=== PATIENT | female | born 1990 | race African-American/Black ===

== ENCOUNTER 2016-08-26 20:38 | Emergency (ER) | payer MEDICAID ==
[~2016-08-26] VITALS: Ht 160 cm; Wt 86.0 kg
[2016-08-26 23:20] VITALS: BP 128/76
[2016-08-27 00:03] LABS: BASOPHILS % 0.6 % (0.0-2.0); CHLORIDE 108 mEq/L (98-107); INDEX HEMOLYSI 1 (1-3); INDEX ICTERIC 1 (1-4); INDEX LIPEMIC 1 (1-3); LYMPHOCYTES % 61.9 % (20.0-50.0); MEAN CORPUSCULAR HEMOGLOBIN 27.9 pg (28.0-32.0); MEAN CORPUSCULAR HGB CONC 32.4 g/dL (31.0-37.0); MEAN CORPUSCULAR VOLUME 86.1 fL (81.0-99.0); MEAN PLATELET VOLUME 7.5 fl (7.4-10.4); MONOCYTES % 8.4 % (2.0-8.0); NEUTROPHILS % 26.1 % (40.0-76.0); PLATELET 269 x1000/uL (130-400); RED CELL DISTRIBUTION WIDTH 16.1 % (11.6-14.6); WHITE BLOOD COUNT 9.9 x1000/uL (4.5-11.0)
[2016-08-27 00:09] LABS: ANION GAP 10; CALCIUM 8.9 mg/dL (8.5-10.1); CARBON DIOXIDE 27 mEq/L (21-32); UREA NITROGEN BLOOD 14 mg/dL (7-21); eGFR > 60 mL/min (>60)
== END 2016-08-27 02:26 | disposition home or self-care (01) ==
LOC: ER 20:38
DX: R53.1 Weakness (principal); J45.909 Unspecified asthma, uncomplicated
CPT/HCPCS: 36415; 80048; 85025; 99284

== ENCOUNTER 2016-09-14 16:09 | Emergency (ER) | payer MEDICAID ==
[~2016-09-14] VITALS: Ht 162.6 cm; Wt 87.0 kg
[2016-09-14] MEDS ORDERED: IPRATROPIUM BROMIDE (0.02%) 0.5MG/2.5ML NEB HHN STA (16:19)
[2016-09-14] MEDS ORDERED: PREDNISONE 20MG TABLET PO STA (16:19)
[2016-09-14] MEDS ORDERED: ALBUTEROL (0.083%) 2.5MG/3ML NEB HHN STA (16:19)
[2016-09-14] MEDS ORDERED: ALBUTEROL (0.5%) 2.5MG/0.5ML NEB HHN ONE (16:33)
[2016-09-14 16:53] VITALS: BP 128/92
== END 2016-09-14 17:33 | disposition home or self-care (01) ==
LOC: ER 16:10
DX: J45.901 Unspecified asthma with (acute) exacerbation (principal); R03.0 Elevated blood-pressure reading, without diagnosis of hypertension
CPT/HCPCS: 94640; 99283; J7512; J7611

== ENCOUNTER 2018-07-30 10:44 | Emergency (ER) | payer MEDICAID ==
[~2018-07-30] VITALS: Ht 160 cm; Wt 119.0 kg
[2018-07-30] MEDS ORDERED: ALBUTEROL (0.083%) 2.5MG/3ML NEB HHN ONE (11:45)
[2018-07-30 13:27] VITALS: BP 133/71
== END 2018-07-30 13:30 | disposition home or self-care (01) ==
LOC: ER 10:44
DX: R05 Cough (principal); J45.909 Unspecified asthma, uncomplicated
CPT/HCPCS: 71045; 81025; 93005; 94640; 99283; J7611

== ENCOUNTER 2018-10-28 06:14 | Emergency (ER) | payer MEDICAID ==
[~2018-10-28] VITALS: Ht 160 cm; Wt 93.0 kg
[2018-10-28] MEDS ORDERED: ALBUTEROL (0.083%) 2.5MG/3ML NEB HHN STA (06:51)
[2018-10-28] MEDS ORDERED: METHYLPREDNISOLONE SOD SUCC 125 MG/2 ML VIAL IV STA (06:51)
[2018-10-28] MEDS ORDERED: IPRATROPIUM BROMIDE (0.02%) 0.5MG/2.5ML NEB HHN STA (06:51)
[2018-10-28] MEDS ORDERED: SODIUM CHLORIDE 0.9% 1,000 ML IV ONE (06:51)
[2018-10-28] MEDS ORDERED: MAGNESIUM 2 G PREMIX 50 ML IV STA (06:51)
[2018-10-28 07:17] LABS: BASOPHILS % 0.5 % (0.0-2.0); HEMATOCRIT. 34.4 % (36.0-48.0); HEMOGLOBIN. 11.3 g/dL (12.0-16.0); LYMPHOCYTES % 58.7 % (20.0-50.0); MEAN CORPUSCULAR HEMOGLOBIN 26.7 pg (28.0-32.0); MEAN CORPUSCULAR VOLUME 81.6 fL (81.0-99.0); MEAN PLATELET VOLUME 7.5 fl (7.4-10.4); MONOCYTES % 7.5 % (2.0-8.0); NEUTROPHILS % 31.3 % (40.0-76.0); PLATELET 301 x1000/uL (130-400); RED BLOOD CELL COUNT 4.22 mill/uL (4.2-5.4); RED CELL DISTRIBUTION WIDTH 16.4 % (11.6-14.6)
[2018-10-28 07:22] VITALS: BP 125/70
[2018-10-28 07:24] LABS: CHLORIDE 110 mEq/L (98-107)
[2018-10-28 07:46] LABS: HCG SCREEN NEGATIVE
[2018-10-28] MEDS ORDERED: PREDNISONE 20MG TABLET PO ONE (09:30)
== END 2018-10-28 11:00 | disposition home or self-care (01) ==
LOC: ER 06:56
DX: J45.901 Unspecified asthma with (acute) exacerbation (principal); I10 Essential (primary) hypertension
CPT/HCPCS: 36415; 71045; 80048; 81025; 83880; 84484; 84703; 85025; 93005; 94644; 96365; 96375; 99285; J2930; J3475; J7030; J7611

== ENCOUNTER 2019-04-06 16:25 | Emergency (ER) | payer MEDICAID ==
[~2019-04-06] VITALS: Ht 162.6 cm; Wt 91.0 kg
[2019-04-06] MEDS ORDERED: IPRATROPIUM BROMIDE (0.02%) 0.5MG/2.5ML NEB HHN STA (16:56)
[2019-04-06] MEDS ORDERED: PREDNISONE 20MG TABLET PO STA (16:56)
[2019-04-06] MEDS ORDERED: ALBUTEROL (0.083%) 2.5MG/3ML NEB HHN STA (16:56)
[2019-04-06 18:34] VITALS: BP 132/68
== END 2019-04-06 18:30 | disposition home or self-care (01) ==
LOC: ER 16:25
DX: J45.901 Unspecified asthma with (acute) exacerbation (principal)
CPT/HCPCS: 81025; 94644; 99285; J7512; J7611; Z7610

== ENCOUNTER 2020-02-16 15:10 | Emergency (ER) | payer MEDICAID, OTHER ==
[~2020-02-16] VITALS: Ht 162.6 cm; Wt 100.0 kg
[2020-02-16 15:12] VITALS: BP 152/80
== END 2020-02-16 16:43 | disposition left against medical advice (07) ==
LOC: ER 15:10
DX: R06.02 Shortness of breath (principal); Z53.21 Procedure and treatment not carried out due to patient leaving prior to being seen by health care provider

== ENCOUNTER 2020-02-16 18:15 | Emergency (ER) | payer BC, MEDICAID ==
[~2020-02-16] VITALS: Ht 162.6 cm; Wt 99.0 kg
[2020-02-16] MEDS ORDERED: TETANUS, DIPHTHERIA, PERTUSSIS VAC/PF 0.5ML (>7YR OLD) IM ONE (19:15)
[2020-02-16 19:21] VITALS: BP 130/78
== END 2020-02-16 19:25 | disposition home or self-care (01) ==
LOC: ER 18:15
DX: S60.571A Other superficial bite of hand of right hand, initial encounter (principal); S41.152A Open bite of left upper arm, initial encounter; F41.9 Anxiety disorder, unspecified; J45.909 Unspecified asthma, uncomplicated; F12.10 Cannabis abuse, uncomplicated; Y04.1XXA Assault by human bite, initial encounter; Y93.89 Activity, other specified; Y92.018 Other place in single-family (private) house as the place of occurrence of the external cause
CPT/HCPCS: 90471; 90715; 99283

== ENCOUNTER 2022-01-18 22:32 | Emergency (ER) | payer BC, MEDICAID ==
[~2022-01-18] VITALS: Ht 160 cm; Wt 100.0 kg
[2022-01-18 22:57] VITALS: BP 127/63
== END 2022-01-19 01:39 | disposition left against medical advice (07) ==
LOC: ER 22:32
DX: Z53.21 Procedure and treatment not carried out due to patient leaving prior to being seen by health care provider (principal)
CPT/HCPCS: 81025